=== PATIENT | male | born 1950 | race Caucasian/White ===

== ENCOUNTER 2018-06-21 23:28 | Inpatient (IN) | payer MEDICARE, MEDICAID ==
[~2018-06-21] VITALS: Ht 170.2 cm; Wt 61.7 kg
[~2018-06-21 23:28] MED LIST: TAGAMET
[2018-06-22] MEDS ORDERED: MORPHINE SULFATE 4 MG/ML CPJ (NOT FOR IM USE) IV STA (00:18)
[2018-06-22] MEDS ORDERED: ONDANSETRON HCL 4MG/2ML INJ IV STA (00:18)
[2018-06-22] MEDS ORDERED: SODIUM CHLORIDE 0.9% 1,000 ML IV ONE (00:18)
[2018-06-22 00:42] LABS: BASOPHILS % 0.4 % (0.0-2.0); EOSINOPHILS % 3.1 % (0.0-5.0); HEMATOCRIT. 40.2 % (42.0-52.0); HEMOGLOBIN. 13.9 g/dL (14.0-18.0); MEAN CORPUSCULAR HEMOGLOBIN 32.4 pg (28.0-32.0); MEAN CORPUSCULAR VOLUME 93.4 fL (80.0-94.0); MEAN PLATELET VOLUME 8.3 fl (7.4-10.4); MONOCYTES % 9.9 % (2.0-8.0); NEUTROPHILS % 70.6 % (40.0-76.0); PLATELET 106 x1000/uL (130-400); RED CELL DISTRIBUTION WIDTH 15.7 % (11.6-14.6)
[2018-06-22 00:44] LABS: CHLORIDE 103 mEq/L (98-107)
[2018-06-22 00:48] LABS: INR 1.1; PROTHROMBIN TIME 10.8 sec (9.1-11.1)
[2018-06-22] MEDS ORDERED: IOHEXOL-300 100 ML BOTTLE ONE (01:06)
[2018-06-22] MEDS ORDERED: DIATR MEGLU/DIATRIZOATE SOLN 30ML ONE (01:06)
[2018-06-22 01:19] LABS: CLARITY URINE CLEAR (CLEAR); COLOR URINE YELLOW (YELLOW); KETONES URINE NEGATIVE (NEGATIVE); LEUKOCYTE ESTERASE URINE NEGATIVE (NEGATIVE); NITRITE URINE NEGATIVE (NEGATIVE); OCCULT BLOOD URINE NEGATIVE (NEGATIVE); PH URINE 8.5 (4.5-8.0); PROTEIN URINE NEGATIVE (NEGATIVE); SPECIFIC GRAVITY URINE 1.005 (1.005-1.030)
[2018-06-22] MEDS ORDERED: DEXT 5%/0.45% NACL 1000ML 1,000 ML IV SCH ×2 (04:12→18:16)
[2018-06-22] MEDS ORDERED: GUAIFENESIN 200MG/10ML SUGAR FREE UDC PO PRN (04:15)
[2018-06-22] MEDS ORDERED: MORPHINE SULFATE 4 MG/ML CPJ (NOT FOR IM USE) IV PRN (04:15)
[2018-06-22] MEDS ORDERED: CLONIDINE 0.1MG TABLET PO PRN (04:15)
[2018-06-22] MEDS ORDERED: MAGNESIUM/ALUMINUM HYDROXIDE/SIMETHICONE 30ML UDC PO PRN (04:15)
[2018-06-22] MEDS ORDERED: ACETAMINOPHEN 325MG TABLET PO PRN (04:15)
[2018-06-22] MEDS ORDERED: ONDANSETRON HCL 4MG/2ML INJ IV PRN (04:15)
[2018-06-22] MEDS ORDERED: LACTULOSE 20G/30ML UDC PO SCH ×2 (06:00→14:00)
[2018-06-22] MEDS ORDERED: FAMOTIDINE 20MG TABLET PO SCH (09:00)
[2018-06-22] MEDS: ENOXAPARIN 40MG/0.4ML SYR SUBCUT SCH (10:30)
[2018-06-22 12:00] VITALS: BP 106/65
[2018-06-22 12:07] VITALS: BP 106/65
[2018-06-22] MEDS ORDERED: HYDR-4001 MT (12:35)
[2018-06-22] MEDS ORDERED: DOCU-150 MT (12:35)
[2018-06-22] MEDS ORDERED: TRAM50TA3 MT (12:35)
[2018-06-22] MEDS: FAMOTIDINE 20MG TABLET PO SCH ×2 (13:05→20:43)
[2018-06-22 16:00] VITALS: BP 100/60
[2018-06-22] MEDS: DOCUSATE SODIUM 100MG CAPSULE PO SCH (18:19)
[2018-06-22] MEDS ORDERED: TRAMADOL 50MG TABLET PO PRN (18:30)
[2018-06-22 20:00] VITALS: BP 94/60
[2018-06-22 20:45] VITALS: BP 94/55
[2018-06-23] VITALS: BP 100/66
[2018-06-23 04:00] VITALS: BP 106/62
[2018-06-23] MEDS: ENOXAPARIN 40MG/0.4ML SYR SUBCUT SCH (06:08)
[2018-06-23 08:07] VITALS: BP 114/69
[2018-06-23] MEDS: DOCUSATE SODIUM 100MG CAPSULE PO SCH (09:13)
[2018-06-23] MEDS: FAMOTIDINE 20MG TABLET PO SCH (09:14)
[2018-06-23 10:07] VITALS: BP 114/69
== END 2018-06-23 11:35 | disposition home or self-care (01) | DRG 388 ==
LOC: ER 23:28 → 8WST 06-22 02:05 → EDBEDREQTM 06-22 03:14 → EDBEDREQ 06-22 03:14 → ENRESERV 06-22 10:52 → 8WST 06-22 11:52
PROVIDERS: ADMIT Internal Medicine; ATTEND Internal Medicine
DX: K56.609 Unspecified intestinal obstruction, unspecified as to partial versus complete obstruction (principal); E43 Unspecified severe protein-calorie malnutrition; C78.7 Secondary malignant neoplasm of liver and intrahepatic bile duct; C78.00 Secondary malignant neoplasm of unspecified lung; C18.9 Malignant neoplasm of colon, unspecified; R59.0 Localized enlarged lymph nodes; K56.41 Fecal impaction; Z90.49 Acquired absence of other specified parts of digestive tract; Z92.21 Personal history of antineoplastic chemotherapy; Z68.21 Body mass index [BMI] 21.0-21.9, adult
CPT/HCPCS: 36415; 71045; 74177; 83605; 93005; 96361; 96372; 96374; 96375; 99285; J1650; J2270; J2405; J7030; Q9963; Q9967

== ENCOUNTER 2018-07-05 01:07 | Inpatient (IN) | payer MEDICARE, MEDICAID ==
[~2018-07-05] VITALS: Ht 165.1 cm; Wt 61.9 kg
[~2018-07-05 01:07] MED LIST changes: +DOCU-150 MT; +HYDR-4001 MT; -TAGAMET; +TRAM50TA3 MT
[2018-07-05] MEDS ORDERED: SODIUM CHLORIDE 0.9% 1,000 ML IV ONE (02:00)
[2018-07-05] MEDS ORDERED: ONDANSETRON HCL 4MG/2ML INJ IV STA (02:00)
[2018-07-05] MEDS ORDERED: MORPHINE SULFATE 4 MG/ML CPJ (NOT FOR IM USE) IV STA (02:00)
[2018-07-05 02:30] LABS: BASOPHILS % 0.4 % (0.0-2.0); EOSINOPHILS % 5.9 % (0.0-5.0); HEMATOCRIT. 34.7 % (42.0-52.0); HEMOGLOBIN. 11.9 g/dL (14.0-18.0); LYMPHOCYTES % 30.3 % (20.0-50.0); MEAN CORPUSCULAR HEMOGLOBIN 32.2 pg (28.0-32.0); MEAN CORPUSCULAR VOLUME 93.7 fL (80.0-94.0); MEAN PLATELET VOLUME 8.3 fl (7.4-10.4); MONOCYTES % 11.8 % (2.0-8.0); NEUTROPHILS % 51.6 % (40.0-76.0); PLATELET 140 x1000/uL (130-400)
[2018-07-05 02:37] LABS: CHLORIDE 102 mEq/L (98-107)
[2018-07-05 02:39] LABS: INR 1.1; PROTHROMBIN TIME 10.8 sec (9.1-11.1)
[2018-07-05] MEDS ORDERED: PIPERACILLIN/TAZ 3.375G PREMIX 50 ML IV ONE (03:15)
[2018-07-05] MEDS ORDERED: METRONIDAZOLE 500 MG PREMIX 100 ML IV ONE (03:15)
[2018-07-05] MEDS ORDERED: GUAIFENESIN 200MG/10ML SUGAR FREE UDC PO PRN (09:15)
[2018-07-05] MEDS ORDERED: LORAZEPAM 0.5MG TABLET PO PRN (09:15)
[2018-07-05] MEDS ORDERED: MAGNESIUM/ALUMINUM HYDROXIDE/SIMETHICONE 30ML UDC PO PRN (09:15)
[2018-07-05] MEDS ORDERED: TRAMADOL 50MG TABLET PO PRN (09:15)
[2018-07-05] MEDS ORDERED: NA PHOS,M-B/NA PHOS,DI-BA ENEMA 118ML PR PRN (09:15)
[2018-07-05] MEDS ORDERED: ONDANSETRON HCL 4MG/2ML INJ IV PRN (09:15)
[2018-07-05] MEDS ORDERED: IPRATROPIUM/ALBUTEROL 0.5-3(2.5)MG/3ML NEB INH PRN (09:15)
[2018-07-05] MEDS ORDERED: CLONIDINE 0.1MG TABLET PO PRN (09:15)
[2018-07-05] MEDS ORDERED: NITROGLYCERIN 0.4MG TABLET SL SL PRN (09:15)
[2018-07-05] MEDS ORDERED: DOCUSATE SODIUM 100MG CAPSULE PO PRN (09:15)
[2018-07-05] MEDS ORDERED: SODIUM CHLORIDE 0.9% 1000ML BAG (SEPSIS BOLUS) IV ONE (09:15)
[2018-07-05] MEDS ORDERED: MORPHINE SULFATE 2 MG/ML CPJ (NOT FOR IM USE) IV PRN (09:15)
[2018-07-05] MEDS ORDERED: PIPERACILLIN/TAZ 3.375G PREMIX 50 ML IV SCH ×2 (09:15→14:00)
[2018-07-05] MEDS ORDERED: MORPHINE SULFATE 10MG/5ML ORAL SOLN UDC PO PRN (17:00)
[2018-07-05] MEDS: FERROUS SULFATE 300MG/5ML UDC PO SCH (18:18)
[2018-07-05 18:26] VITALS: BP 110/64
[2018-07-05 19:59] VITALS: BP 96/60
[2018-07-05] MEDS: PIPERACILLIN/TAZ 3.375G PREMIX 50 ML IV SCH (20:48)
[2018-07-05] MEDS: FAMOTIDINE 20MG TABLET PO SCH (20:48)
[2018-07-05] MEDS: ASCORBIC ACID 500 MG TABLET PO SCH (20:48)
[2018-07-05] MEDS ORDERED: ZOLPIDEM TARTRATE 5MG TABLET PO PRN (21:00)
[2018-07-05 23:06] LABS: CLARITY URINE CLEAR (CLEAR); COLOR URINE YELLOW (YELLOW); KETONES URINE NEGATIVE (NEGATIVE); LEUKOCYTE ESTERASE URINE NEGATIVE (NEGATIVE); NITRITE URINE NEGATIVE (NEGATIVE); OCCULT BLOOD URINE NEGATIVE (NEGATIVE); PH URINE 5.5 (4.5-8.0); PROTEIN URINE NEGATIVE (NEGATIVE); SPECIFIC GRAVITY URINE 1.009 (1.005-1.030); UROBILINOGEN URINE 0.2 E.U./dL (0.2-1.0)
[2018-07-06] VITALS (9 sets, daily range): BP systolic 81–167; BP diastolic 48–68
[2018-07-06] MEDS: PIPERACILLIN/TAZ 3.375G PREMIX 50 ML IV SCH ×4 (01:54→21:09)
[2018-07-06] MEDS: FERROUS SULFATE 300MG/5ML UDC PO SCH ×2 (08:35→18:41)
[2018-07-06] MEDS: FAMOTIDINE 20MG TABLET PO SCH ×2 (08:44→21:22)
[2018-07-06] MEDS: ASCORBIC ACID 500 MG TABLET PO SCH ×2 (08:44→21:22)
[2018-07-06] MEDS: ZINC SULFATE 220 MG ( 50 ) CAPSULE PO SCH (08:44)
[2018-07-06] MEDS: ACETAMINOPHEN 325MG TABLET PO PRN ×2 (17:08→23:03)
[2018-07-06 18:35] LABS: HEMATOCRIT. 27.1 % (42.0-52.0); HEMOGLOBIN. 9.4 g/dL (14.0-18.0); MEAN CORPUSCULAR HEMOGLOBIN 32.6 pg (28.0-32.0); MEAN PLATELET VOLUME 7.9 fl (7.4-10.4); PLATELET 113 x1000/uL (130-400); RED BLOOD CELL COUNT 2.89 mill/uL (4.7-6.1); RED CELL DISTRIBUTION WIDTH 16.3 % (11.6-14.6)
[2018-07-06 18:50] LABS: CHLORIDE 107 mEq/L (98-107)
[2018-07-06 19:25] LABS: PLATELET ESTIMATE DECREASED
[2018-07-07] VITALS (7 sets, daily range): BP systolic 82–97; BP diastolic 42–59
[2018-07-07] MEDS: PIPERACILLIN/TAZ 3.375G PREMIX 50 ML IV SCH ×4 (02:24→21:00)
[2018-07-07] MEDS: FAMOTIDINE 20MG TABLET PO SCH ×2 (07:50→21:21)
[2018-07-07] MEDS: ZINC SULFATE 220 MG ( 50 ) CAPSULE PO SCH (07:50)
[2018-07-07] MEDS: ASCORBIC ACID 500 MG TABLET PO SCH ×2 (07:50→21:21)
[2018-07-07] MEDS: FERROUS SULFATE 300MG/5ML UDC PO SCH ×3 (07:51→17:25)
[2018-07-07] MEDS: ACETAMINOPHEN 325MG TABLET PO PRN (14:48)
[2018-07-07] MEDS ORDERED: HYDROMORPHONE HCL/PF 2MG/ML CPJ IV PRN (19:15)
[2018-07-08 00:13] VITALS: BP 110/61
[2018-07-08] MEDS: PIPERACILLIN/TAZ 3.375G PREMIX 50 ML IV SCH ×2 (01:54→08:54)
[2018-07-08 04:05] VITALS: BP 80/48
[2018-07-08 05:39] LABS: BASOPHILS % 0.3 % (0.0-2.0); EOSINOPHILS % 6.3 % (0.0-5.0); HEMATOCRIT. 28.8 % (42.0-52.0); HEMOGLOBIN. 9.9 g/dL (14.0-18.0); LYMPHOCYTES % 36.4 % (20.0-50.0); MEAN CORPUSCULAR HEMOGLOBIN 32.5 pg (28.0-32.0); MEAN CORPUSCULAR VOLUME 94.6 fL (80.0-94.0); MEAN PLATELET VOLUME 8.4 fl (7.4-10.4); MONOCYTES % 14.5 % (2.0-8.0); NEUTROPHILS % 42.5 % (40.0-76.0); PLATELET 114 x1000/uL (130-400); RED BLOOD CELL COUNT 3.04 mill/uL (4.7-6.1)
[2018-07-08 05:44] LABS: CHLORIDE 107 mEq/L (98-107)
[2018-07-08] MEDS: FERROUS SULFATE 300MG/5ML UDC PO SCH ×2 (07:50→13:14)
[2018-07-08] MEDS: ASCORBIC ACID 500 MG TABLET PO SCH (08:54)
[2018-07-08] MEDS: FAMOTIDINE 20MG TABLET PO SCH (08:54)
[2018-07-08] MEDS: ZINC SULFATE 220 MG ( 50 ) CAPSULE PO SCH (08:54)
[2018-07-08 12:00] VITALS: BP 95/56
[2018-07-08 13:27] VITALS: BP 99/68
[2018-07-08 13:28] VITALS: BP 99/61
== END 2018-07-08 14:35 | disposition home health service (06) | DRG 393 ==
LOC: ER 01:59 → 6WST 03:14 → EDBEDREQTM 03:15 → EDBEDREQ 03:15 → SUPCPDRO 09:08 → ENRESERV 15:08
PROVIDERS: ADMIT Internal Medicine; ATTEND Internal Medicine
DX: K94.01 Colostomy hemorrhage (principal); A41.9 Sepsis, unspecified organism; E44.0 Moderate protein-calorie malnutrition; C18.9 Malignant neoplasm of colon, unspecified; Z92.21 Personal history of antineoplastic chemotherapy; Z68.22 Body mass index [BMI] 22.0-22.9, adult
CPT/HCPCS: 36415; 71045; 74176; 80061; 83036; 83605; 84484; 86850; 86900; 93005; 93970; 96361; 96365; 96367; 96375; 97162; 97165; 99291; J2270; J2405; J2543; J3490; J7030; J7050

== ENCOUNTER 2018-07-16 19:25 | Inpatient (IN) | payer MEDICARE, MEDICAID ==
[~2018-07-16] VITALS: Ht 165.1 cm; Wt 62.1 kg
[2018-07-16 20:00] VITALS: BP 108/62
[2018-07-16 23:02] LABS: HEMATOCRIT. 31.2 % (42.0-52.0); HEMOGLOBIN. 10.5 g/dL (14.0-18.0); MEAN CORPUSCULAR HEMOGLOBIN 32.5 pg (28.0-32.0); MEAN CORPUSCULAR VOLUME 96.4 fL (80.0-94.0); MEAN PLATELET VOLUME 8.1 fl (7.4-10.4); PLATELET 138 x1000/uL (130-400); RED BLOOD CELL COUNT 3.24 mill/uL (4.7-6.1); RED CELL DISTRIBUTION WIDTH 17.8 % (11.6-14.6)
[2018-07-16 23:07] LABS: CHLORIDE 104 mEq/L (98-107)
[2018-07-16 23:13] LABS: PLATELET ESTIMATE NORMAL
[2018-07-16] MEDS ORDERED: SODIUM CHLORIDE 0.9% 1,000 ML IV ONE (23:14)
[2018-07-16] MEDS ORDERED: MORPHINE SULFATE 10 MG/ML CPJ IV ONE (23:15)
[2018-07-16] MEDS ORDERED: ONDANSETRON HCL 4MG/2ML INJ IV ONE (23:15)
[2018-07-16 23:48] LABS: INR 1.1; PROTHROMBIN TIME 11.2 sec (9.1-11.1)
[2018-07-17] MEDS ORDERED: SODIUM CHLORIDE 0.9% 1,000 ML IV ONE (00:47)
[2018-07-17 04:00] VITALS: BP 105/70
[2018-07-17 08:00] VITALS: BP 97/51
[2018-07-17] MEDS: HYDROCODONE/ACETAMINOPHEN 5/325MG TABLET PO PRN ×2 (09:30→23:40)
[2018-07-17] MEDS ORDERED: ONDANSETRON HCL 4MG/2ML INJ IV PRN (09:30)
[2018-07-17 10:46] LABS: HEMATOCRIT. 32.8 % (42.0-52.0); MEAN CORPUSCULAR HEMOGLOBIN 32.7 pg (28.0-32.0); MEAN CORPUSCULAR VOLUME 97.2 fL (80.0-94.0); MEAN PLATELET VOLUME 8.2 fl (7.4-10.4); PLATELET 124 x1000/uL (130-400); RED BLOOD CELL COUNT 3.37 mill/uL (4.7-6.1); RED CELL DISTRIBUTION WIDTH 18.4 % (11.6-14.6)
[2018-07-17 10:51] LABS: CHLORIDE 105 mEq/L (98-107)
[2018-07-17 11:00] VITALS: BP 92/61
[2018-07-17 11:43] LABS: PLATELET ESTIMATE SLIGHTLY DECREASED
[2018-07-17 16:00] VITALS: BP 92/49
[2018-07-17] MEDS: DEXT 5%/0.9% NACL 1,000 ML IV SCH ×2 (16:20→23:29)
[2018-07-17] MEDS: PANTOPRAZOLE SODIUM 40 MG/VIAL IV SCH (16:20)
[2018-07-17 17:08] LABS: CLARITY URINE CLEAR (CLEAR); COLOR URINE YELLOW (YELLOW); KETONES URINE NEGATIVE (NEGATIVE); LEUKOCYTE ESTERASE URINE NEGATIVE (NEGATIVE); NITRITE URINE NEGATIVE (NEGATIVE); OCCULT BLOOD URINE NEGATIVE (NEGATIVE); PH URINE 6.5 (4.5-8.0); PROTEIN URINE NEGATIVE (NEGATIVE); SPECIFIC GRAVITY URINE 1.005 (1.005-1.030)
[2018-07-17 17:20] LABS: *BENZODIAZEPINES SCREEN URINE NEGATIVE (NEGATIVE); *COCAINE SCREEN URINE NEGATIVE (NEGATIVE); METHADONE URINE SCREEN NEGATIVE (NEGATIVE)
[2018-07-17 17:21] LABS: *AMPHETAMINES SCREEN URINE NEGATIVE (NEGATIVE); *BARBITURATES SCREEN URINE NEGATIVE (NEGATIVE); CANNABINOID URINE SCREEN NEGATIVE (NEGATIVE); OPIATES URINE SCREEN PRESUMTIVE POSITIVE (NEGATIVE); PHENCYCLIDINE URINE SCREEN NEGATIVE (NEGATIVE)
[2018-07-17 19:22] LABS: HEMATOCRIT 28.8 % (42.0-52.0); HEMOGLOBIN 9.7 g/dL (14.0-18.0)
[2018-07-17 20:00] VITALS: BP 108/56
[2018-07-18] VITALS: BP 108/62
[2018-07-18 01:58] LABS: HEMATOCRIT 29.1 % (42.0-52.0); HEMOGLOBIN 9.7 g/dL (14.0-18.0)
[2018-07-18] MEDS ORDERED: HYDROCODONE/ACETAMINOPHEN 5/325MG TABLET PO PRN (03:00)
[2018-07-18] MEDS ORDERED: ACETAMINOPHEN 325MG TABLET PO PRN (03:00)
[2018-07-18] MEDS: DEXT 5%/0.45% NACL 1000ML 1,000 ML IV SCH ×3 (03:33→21:59)
[2018-07-18 04:00] VITALS: BP 108/60
[2018-07-18 05:48] LABS: HEMATOCRIT. 29.3 % (42.0-52.0); MEAN CORPUSCULAR HEMOGLOBIN 33.2 pg (28.0-32.0); MEAN PLATELET VOLUME 8.5 fl (7.4-10.4); PLATELET 120 x1000/uL (130-400); RED BLOOD CELL COUNT 3.02 mill/uL (4.7-6.1); RED CELL DISTRIBUTION WIDTH 17.9 % (11.6-14.6)
[2018-07-18 05:52] LABS: CHLORIDE 106 mEq/L (98-107)
[2018-07-18 08:00] VITALS: BP 116/64
[2018-07-18] MEDS: PANTOPRAZOLE SODIUM 40 MG/VIAL IV SCH ×2 (09:21→18:15)
[2018-07-18 10:03] LABS: PLATELET ESTIMATE SLIGHTLY DECREASED
[2018-07-18 12:42] VITALS: BP 120/66
[2018-07-18 16:16] VITALS: BP 97/61
[2018-07-18 20:00] VITALS: BP 95/55
[2018-07-18 21:57] LABS: HEMATOCRIT 30.4 % (42.0-52.0); HEMOGLOBIN 10.4 g/dL (14.0-18.0)
[2018-07-19] VITALS: BP 96/54
[2018-07-19 04:00] VITALS: BP 100/68
[2018-07-19 08:00] VITALS: BP 100/61
[2018-07-19] MEDS: PANTOPRAZOLE SODIUM 40 MG/VIAL IV SCH (09:13)
[2018-07-19 12:00] VITALS: BP 102/67
[2018-07-19 12:29] VITALS: BP 110/64
[2018-07-19 12:48] VITALS: BP 110/64
== END 2018-07-19 16:03 | disposition home or self-care (01) | DRG 377 ==
LOC: ER 21:41 → 8WST 07-17 00:50 → EDBEDREQ 07-17 00:54 → ENRESERV 07-17 02:53
PROVIDERS: ADMIT Internal Medicine Nephrology; ATTEND Internal Medicine Nephrology
DX: K57.91 Diverticulosis of intestine, part unspecified, without perforation or abscess with bleeding (principal); E43 Unspecified severe protein-calorie malnutrition; C18.9 Malignant neoplasm of colon, unspecified; C78.7 Secondary malignant neoplasm of liver and intrahepatic bile duct; C78.00 Secondary malignant neoplasm of unspecified lung; E87.2 Acidosis; D72.819 Decreased white blood cell count, unspecified; I95.9 Hypotension, unspecified; R94.5 Abnormal results of liver function studies; D64.9 Anemia, unspecified; D69.6 Thrombocytopenia, unspecified; D72.825 Bandemia; Z85.038 Personal history of other malignant neoplasm of large intestine; Z93.3 Colostomy status; Z68.22 Body mass index [BMI] 22.0-22.9, adult; Z92.21 Personal history of antineoplastic chemotherapy
CPT/HCPCS: 36415; 76700; 78278; 80048; 80076; 80305; 84484; 85014; 85018; 86850; 86900; 93970; 96374; 99291; A9560; C9113; J2270; J2405; J3490; J7030; J7042

== ENCOUNTER → 2018-09-01 | Outpatient (CLI) | payer MEDICARE, MEDICAID ==
[~2018-09-01] MED LIST changes: -DOCU-150 MT
== END | disposition home or self-care (01) ==
LOC: RAD 12:50
PROVIDERS: ATTEND Internal Medicine Nephrology
DX: M47.816 Spondylosis without myelopathy or radiculopathy, lumbar region (principal); M47.814 Spondylosis without myelopathy or radiculopathy, thoracic region; Z85.038 Personal history of other malignant neoplasm of large intestine
CPT/HCPCS: 72070; 72100